=== PATIENT | male | born 1940 ===

== ENCOUNTER 2016-10-12 12:26 | Inpatient (IN) | payer MEDICARE, OTHER ==
[2016-10-12 12:26] VITALS: BMI 38.0
[2016-10-12 13:28] LABS: BASO # 0.1 K/uL (0.0-0.2); BASO % 0.7 % (0.0-2.0); EOS # 0.2 K/uL (0.0-0.7); EOS % 2.3 % (0.0-4.0); HEMATOCRIT 33.7 % (35.0-51.0); LYMPH # 3.5 K/uL (1.0-4.3); LYMPH % 34.3 % (20.0-40.0); MEAN CELL VOLUME 82.8 fl (80.0-94.0); MEAN CORPUSCULAR HEMOGLOBIN 26.7 pg (27.0-31.0); MEAN CORPUSCULAR HGB CONC 32.2 g/dL (33.0-37.0); MEAN PLATELET VOLUME 7.9 fl (7.2-11.7); MONO # 0.7 K/uL (0.0-0.8); NEUT # 5.8 K/uL (1.8-7.0); NEUT % 55.7 % (50.0-75.0); RED CELL DISTRIBUTION WIDTH 15.9 % (11.5-14.5); WHITE BLOOD COUNT 10.3 K/uL (4.8-10.8)
--- NOTE | 2016-10-12 13:39 | RAD ---
HISTORY: cough COMPARISON: 12/21/2013 FINDINGS: LUNGS: Minimal opacity at left lung base, infiltrate versus atelectasis. No other abnormal opacity elsewhere. PLEURA: No significant pleural effusion identified, no pneumothorax apparent. CARDIOVASCULAR: Normal. OSSEOUS STRUCTURES: No significant abnormalities. VISUALIZED UPPER ABDOMEN: Normal. OTHER FINDINGS: None. IMPRESSION: Infiltrate versus atelectasis at left lung base. This finding was discussed with Dr. kerr by telephone at 1:37 p.m. on 10/12/2016.
[2016-10-12 13:47] LABS: PARTIAL THROMBOPLASTIN TIME 24.2 SECONDS (23.3-32.5)
[2016-10-12 13:51] LABS: ALB/GLOB RATIO 0.9 (1.0-2.1); ALKALINE PHOSPHATASE 116 U/L (38-126); ALT/SGPT 26 U/L (21-72); AST/SGOT 25 U/L (17-59); BILIRUBIN,TOTAL 0.2 mg/dl (0.2-1.3); BLOOD UREA NITROGEN 26 mg/dl (9-20); CALCIUM 9.7 mg/dL (8.4-10.2); CARBON DIOXIDE 25 mmol/L (22-30); CHLORIDE 101 mmol/L (98-107); GFR AFRICAN-AMERICAN > 60; GLUCOSE,RANDOM 279 mg/dL (75-110); MAGNESIUM 1.9 MG/DL (1.6-2.3); POTASSIUM 4.4 MMOL/L (3.6-5.0); SODIUM 140 mmol/l (132-148); TOTAL PROTEIN 8.6 G/DL (6.3-8.2)
[2016-10-12] MEDS ORDERED: Piperacillin/Tazobact 3.375 gm Inj IVPB ONE (14:09)
[2016-10-12] MEDS ORDERED: Piperacillin/Tazobact 3.375 GM in Sodium Chloride 0.9% 100 ML IVPB STA (14:12)
--- NOTE | 2016-10-12 14:15 | ED PDOC ---
Hyperglycemia/Hypoglycemia Time Seen by Provider: 10/12/16 12:41 Chief Complaint (Nursing): High Blood Sugar Chief Complaint (Provider): High Blood Sugar History Per: Patient History/Exam Limitations: no limitations Onset/Duration Of Symptoms: Hrs Current Symptoms Are (Timing): Still Present Severity: Mild Associated Infectious Symptoms: Cough. denies: Vomiting, Diarrhea : The patient does not have any of the infectious symptoms listed except for those marked. Additional Complaint(s): Patient is a 76 year old male, who has a history of diabetes, brought in by EMS for high blood sugar since earlier today. Patient reports checking his blood sugar and realized it was elevated so he called the ambulance. Patient has a [facility] home [facility]. Patient fell 4 days ago on the back of his head and has had recurrent headaches since then. Denies loss of consciousness. Patient also complains of cough and congestion for an unspecified amount of time. Denies fever, vomiting, diarrhea, or chest pain. PMD: [place] Past Medical History Reviewed: Historical Data, Nursing Documentation, Vital Signs Vital Signs: Last Vital Signs Temp 98.9 F 10/12/16 12:27 Pulse 110 H 10/12/16 12:27 Resp 16 10/12/16 12:27 BP 177/91 H 10/12/16 12:27 Pulse Ox 99 10/12/16 12:27 - Medical History PMH: Diabetes (presumed ), HTN, Hyperlipidemia - Family History Family History: States: No Known Family Hx - Home Medications Home Medications: Ambulatory Orders Medication Instructions Recorded Aspirin [Adult Low Dose Aspirin EC] 81 mg PO DAILY 04/27/16 Colchicine [Colcrys] 0.6 mg PO DAILY 04/27/16 Folic Acid 1 mg PO DAILY 04/27/16 Pregabalin [Lyrica] 100 mg PO DAILY 04/27/16 Valsartan [Diovan] 80 mg PO DAILY 04/27/16 Atorvastatin [Lipitor] 20 mg PO DAILY 04/29/16 SITagliptin [Januvia] 25 mg PO DAILY 04/29/16 Albuterol/Ipratropium [Duoneb 3 3 ml INH RQ6 neb 05/18/16 mg/0.5 mg (3 ml) UD] Fluticasone/Salmeterol 250/50 1 puff IH Q12 puff 10/25/16 [Advair Diskus 250/50] Tiotropium [Spiriva] 18 mcg INH DAILY cap 05/18/16 Aspirin [Adult Low Dose Aspirin EC] 1 tab PO DAILY 10/12/16 Cilostazol [Pletal] 1 tab PO DAILY 10/12/16 Esomeprazole Magnesium [Nexium] 40 mg PO DAILY 10/12/16 Insulin Aspart [Novolog Flexpen] 3 ml INJ DAILY 10/12/16 Insulin Detemir [Levemir] 3 ml INJ DAILY 10/12/16 Meclizine [Meclizine*] 0.5 tab PO PRN PRN 10/12/16 [id number] Ethyl Esters [OMEGA 3] 2 tab PO DAILY 10/12/16 Tolterodine Tartrate [Tolterodine 1 tab PO DAILY 10/12/16 Tartrate] - Allergies Allergies/Adverse Reactions: Allergies Allergy/AdvReac Type Severity Reaction Status Date / Time No Known Allergies Allergy Verified 10/12/16 13:15 Review of Systems ROS Statement: Except As Marked, All Systems Reviewed And Found Negative Constitutional: Positive for: Other (high blood sugar). Negative for: Fever ENT: Positive for: Nose Congestion Cardiovascular: Negative for: Chest Pain Respiratory: Positive for: Cough Gastrointestinal: Negative for: Vomiting, Diarrhea Neurological: Positive for: Headache Physical Exam - Reviewed Nursing Documentation Reviewed: Yes Vital Signs Reviewed: Yes - Physical Exam Appears: Positive for: Well, Non-toxic, No Acute Distress Head Exam: Positive for: ATRAUMATIC, NORMAL INSPECTION, NORMOCEPHALIC Skin: Positive for: Pallor Eye Exam: Positive for: EOMI, Normal appearance, PERRL Neck: Positive for: Normal, Painless ROM Cardiovascular/Chest: Positive for: Regular Rate, Rhythm. Negative for: Gallop , Murmur Respiratory: Positive for: Normal Breath Sounds. Negative for: Accessory Muscle Use, Rhonchi, Respiratory Distress Extremity: Positive for: Normal ROM Neurologic/Psych: Positive for: Alert, Oriented - Laboratory Results Result Diagrams: 10/12/16 12:55 10/12/16 12:55 - ECG ECG: Positive for: Interpreted By Me, Viewed By Me ECG Rhythm: Positive for: Normal QRS, Normal ST Segment, Sinus Rhythm, Sinus Tachycardia, Right Bundle Branch Block. Negative for: Nonspecific Changes Rate: 65 O2 Sat by Pulse Oximetry: 99 (RA) Pulse Ox Interpretation: Normal - Radiology X-Ray: Viewed By Me, Read By Radiologist X-Ray Interpretation: Infiltrates Medical Decision Making Medical Decision Making: Time: 12:45 Impression: head injury r/o intracranial bleeding Hyperglycemia/ uncontrolled diabetes PNA v CHF Plan: CT Head EKG B-Type Natriuretic Peptide CMP Magnesium Stat Udip Piperacillin IV Blood Culture Scribe Attestation: Documented by Joselin Dyer acting as a scribe for Mary Beth Pfeiffer MD. Scribe Attestation: All medical record entries made by the Scribe were at my direction and personally dictated by me. I have reviewed the chart and agree that the record accurately reflects my personal performance of the history, physical exam, medical decision making, and the department course for this patient. I have also personally directed, reviewed, and agree with the discharge instructions and disposition. - PROCEDURE: CT HEAD WITHOUT CONTRAST. HISTORY: head injury COMPARISON: Noncontrast head CT performed 12/21/13 TECHNIQUE: Axial computed tomography images were obtained through the head/brain without intravenous contrast. Radiation dose: Total exam DLP = 2694.96 mGy-cm. FINDINGS: HEMORRHAGE: No intracranial hemorrhage. BRAIN: No mass effect or edema. Intracranial atherosclerosis. Bilateral basal ganglia calcifications. Right parietal encephalomalacia. Moderate periventricular and subcortical white matter hypodensities, which are nonspecific, but often seen with chronic microvascular ischemic disease. 12 x 4 mm right basal ganglia hypodensity consistent with chronic appearing lacunar infarct. VENTRICLES: No hydrocephalus. CALVARIUM: Unremarkable. PARANASAL SINUSES: Unremarkable as visualized. No significant inflammatory changes. MASTOID AIR CELLS: Opacification of the left mastoid air cells. Recommend clinical correlation for history of mastoiditis. OTHER FINDINGS: None. IMPRESSION: Right parietal encephalomalacia. Moderate nonspecific white matter changes. 12 x 4 mm right basal ganglia lacunar infarct appears chronic. Please note that MRI with diffusion imaging is more sensitive in the detection of acute ischemic event. Opacification of the left mastoid air cells. Recommend clinical correlation for history of mastoiditis. Disposition - Clinical Impression Clinical Impression: Hyperglycemia, Pneumonia, Head injury - Patient ED Disposition Is Patient to be Admitted: Yes Discussed With : Kaden Dior Doctor Will See Patient In The: Hospital Counseled Patient/Family Regarding: Studies Performed, Diagnosis - Disposition Disposition Time: 15:00 Condition: FAIR - Pt Status Changed To: Hospital Disposition Of: Inpatient - Admit Certification Admit to Inpatient:: After my assessment, the patient will require hospitalization for at least two midnights. This is because of the severity of symptoms shown, intensity of services needed, and/or the medical risk in this patient being treated as an outpatient. - POA Present On Arrival: Falls Or Trauma, Poor Glycemic Control Core Measure Indicators: Pneumonia
--- NOTE | 2016-10-12 14:23 | CARD ---
APPROVED REPORT EKG Measurement Heart [id number] <Conclusion> Sinus tachycardia Right bundle branch block Left anterior fascicular block Bifascicular block Possible Lateral infarct, age undetermined Abnormal ECG
--- NOTE | 2016-10-12 14:34 | CT ---
PROCEDURE: CT HEAD WITHOUT CONTRAST. HISTORY: head injury COMPARISON: Noncontrast head CT performed 12/21/13 TECHNIQUE: Axial computed tomography images were obtained through the head/brain without intravenous contrast. Radiation dose: Total exam DLP = 2694.96 mGy-cm. FINDINGS: HEMORRHAGE: No intracranial hemorrhage. BRAIN: No mass effect or edema. Intracranial atherosclerosis. Bilateral basal ganglia calcifications. Right parietal encephalomalacia. Moderate periventricular and subcortical white matter hypodensities, which are nonspecific, but often seen with chronic microvascular ischemic disease. 12 x 4 mm right basal ganglia hypodensity consistent with chronic appearing lacunar infarct. VENTRICLES: No hydrocephalus. CALVARIUM: Unremarkable. PARANASAL SINUSES: Unremarkable as visualized. No significant inflammatory changes. MASTOID AIR CELLS: Opacification of the left mastoid air cells. Recommend clinical correlation for history of mastoiditis. OTHER FINDINGS: None. IMPRESSION: Right parietal encephalomalacia. Moderate nonspecific white matter changes. 12 x 4 mm right basal ganglia lacunar infarct appears chronic. Please note that MRI with diffusion imaging is more sensitive in the detection of acute ischemic event. Opacification of the left mastoid air cells. Recommend clinical correlation for history of mastoiditis.
--- NOTE | 2016-10-12 19:49 | CP.PCM.HP ---
History of Present Illness - History of Present Illness History of Present Illness: CC: High Blood Sugar. 76 y/o M, brought in by ambulance after he noticed to have increased BS previously patient ate a cake in large amount , He thought that was diet cake and it was regular , BS was in the 500s while at home in AM DOA, pt using insulin with no improvement, there after EMS was called and Pt was brought ER [facility] for evaluation and Tx. As per Pt, high BS not associated to any other symptom but cough and congested nose. Worsening symptoms: Headache and neck pain 2nd to fall 4 days [employer] and still with symptoms, pain was described as aching of moderate intensity of 6: 10. Aggravated Factor: Hx of fall 2nd to Losing equilibrium , Patient stated that felt his leg weak and was having mils dizziness, , He felt down sustaining a head contusion ,denied LOC Pt denied: fever, chills, LOC, n/v/d, abdominal pain, CP, SOB, sick contact, recent travel. PMHx: COPD, DM, HTN, HLD, Gout, Hx CVA, Hx of falls, vertigo. EKG showed: Sinus Tachycardia, R bundle branch block, L anterior fascicular block, Bifascicular block, possible lateral infarct, age undetermined. CXR: Infiltrate versus atelectasis at left lung base. CT Head w/o contrast: R parietal encephalomalacia, moderate nonspecific white matter changes, R basal ganglia lacunar infarct appears chronic. Present on Admission - Present on Admission Any Indicators Present on Admission: Yes History of Uncontrolled Diabetes: Yes Review of Systems - Constitutional Constitutional: Headache - EENT Eyes: Other (negative) Ears: Other (negative) Nose/Mouth/Throat: Nasal Congestion - Cardiovascular Cardiovascular: Other (neg) - Respiratory Respiratory: Cough - Gastrointestinal Gastrointestinal: Other (negative) - Genitourinary Genitourinary: Urinary Incontinence - Musculoskeletal Musculoskeletal: Neck Pain (2nd to fall) - Integumentary Integumentary: Other (negative) - Neurological Neurological: Abnormal Speech (mild slurred), Disequilibrium, Focal Weakness ( lower extremities), Headaches (2nd to fall) - Psychiatric Psychiatric: Other - Endocrine Endocrine: Other (negative) - Hematologic/Lymphatic Hematologic: Other (negative) Past Patient History - Infectious Disease Hx of Infectious Diseases: None - Past Medical History & Family History Pertinent Family History: Unknown - Past Social History Smoking Status: Former Smoker Alcohol: None Drugs: Denies Home Situation {Lives}: Alone - CARDIAC Hx Cardiac Disorders: Yes (HTN,HLD) - PULMONARY Hx Respiratory Disorders: No - NEUROLOGICAL Hx Neurological Disorder: Yes (CVA) - HEENT Hx HEENT Problems: No - RENAL Hx Chronic Kidney Disease: No - ENDOCRINE/METABOLIC Hx Endocrine Disorders: Yes (DM1) - HEMATOLOGICAL/ONCOLOGICAL Hx Blood Disorders: No - INTEGUMENTARY Hx Dermatological Problems: No - MUSCULOSKELETAL/RHEUMATOLOGICAL Hx Musculoskeletal Disorders: Yes (GOUT) - GASTROINTESTINAL Hx Gastrointestinal Disorders: Yes Hx Gastroesophageal Reflux: Yes - GENITOURINARY/GYNECOLOGICAL Hx Genitourinary Disorders: Yes (OVERACTIVE BLADDER) - PSYCHIATRIC Hx Psychophysiologic Disorder: No - SURGICAL HISTORY Hx Surgeries: Yes Other/Comment: per son,Patient had Prostate Sx 7 yrs ago,neck sx. - ANESTHESIA Hx Anesthesia: Yes Hx Anesthesia Reactions: No Meds Home Medications: Home Medication List Medication Instructions Recorded Confirmed Type Azithromycin [Zithromax] 500 mg PO DAILY #3 tablet 10/18/16 Rx Promethazine/Codeine 10 ml PO Q6 PRN #10 udc 10/18/16 Rx [Phenergan/Codeine Oral Syrup] Allergies/Adverse Reactions: Allergies Allergy/AdvReac Type Severity Reaction Status Date / Time No Known Allergies Allergy Verified 10/12/16 13:15 Physical Exam - Constitutional Appears: No Acute Distress - Head Exam Additional comments: tenderness occipital - Eye Exam Eye Exam: EOMI, PERRL - ENT Exam ENT Exam: Normal Oropharynx - Neck Exam Neck exam: Positive for: Tenderness (Cervical , healed surgical scar) - Respiratory Exam Respiratory Exam: Decreased Breath Sounds (at bases) - Cardiovascular Exam Cardiovascular Exam: REGULAR RHYTHM - GI/Abdominal Exam GI & Abdominal Exam: Normal Bowel Sounds, Soft Additional comments: scar from previous PEG tube - Extremities Exam Extremities exam: Positive for: normal inspection - Back Exam Back exam: NORMAL INSPECTION - Neurological Exam Neurological exam: Alert, Oriented x3 Additional comments: Minimal R facial droop, mild slurred speech, gait no tested, moves well extremities against gravity, RUE mild weakness - Psychiatric Exam Psychiatric exam: Normal Mood - Skin Skin Exam: Normal Color, Warm Results - Vital Signs Recent Vital Signs: Last Vital Signs Temp 98.2 F 10/12/16 19:45 Pulse 93 H 10/12/16 19:45 Resp 18 10/12/16 19:45 BP 165/81 H 10/12/16 19:45 Pulse Ox 98 10/12/16 19:45 reviewed J.PMary - Labs Result Diagrams: 10/18/16 05:50 10/18/16 05:50 Labs: reviewed J.PMary - EKG Data EKG comments: reviewed J.P. - Imaging and Cardiology Chest x-ray Status: Report reviewed by me (Nick) CT scan - head Status: Report reviewed by me (Nick) Assessment & Plan (1) Hyperglycemia Status: Resolved Priority: High (2) HTN (hypertension) Status: Chronic Priority: High (3) DMII (diabetes mellitus, type 2) Status: Chronic Priority: High (4) Pneumonia Status: Deleted Priority: High (5) COPD exacerbation Status: Acute (6) HLD (hyperlipidemia) Status: Chronic Priority: Medium (7) Head injury Status: Acute (8) Cervical sprain Status: Acute (9) History of CVA (cerebrovascular accident) Status: Chronic - Assessment and Plan (Free Text) Plan: Zithromax, Zosyn, Duoneb, Pulmicort, f/u Blood C-S, Sputum C-S, Carotid & vertebral U-S, MRI Brain w/o cont, ECHO , CT Neck and Chest w/o contrast.. - Date & Time Date: 10/12/16 Time: 16:50
[2016-10-12] MEDS ORDERED: Sodium Chloride 3% for Inhalation 4 ML VIAL.NEB IH PRN (20:45)
[2016-10-12] MEDS ORDERED: Budesonide 0.5 mg/2 ml Inhal Susp UD IH SCH (21:00)
[2016-10-12] MEDS: Insulin Detemir 100 Units/ml Inj SC SCH (22:21)
[2016-10-12] MEDS: Insulin Regular 100 units/ml SC SCH (22:23)
[2016-10-12] MEDS: Piperacillin/Tazobact 3.375 GM in Sodium Chloride 0.9% 100 ML IVPB SCH (22:24)
[2016-10-13] MEDS: Albuterol-Ipratrop 3 mg / 0.5 (3 ml) UD INH SCH (01:05)
[2016-10-13] MEDS: Piperacillin/Tazobact 3.375 GM in Sodium Chloride 0.9% 100 ML IVPB SCH ×4 (05:11→21:01)
[2016-10-13] MEDS: Insulin Regular 100 units/ml SC SCH ×4 (06:51→22:49)
[2016-10-13 07:11] LABS: HEMATOCRIT 33.2 % (35.0-51.0); MEAN CELL VOLUME 81.4 fl (80.0-94.0); MEAN CORPUSCULAR HEMOGLOBIN 26.8 pg (27.0-31.0); WHITE BLOOD COUNT 9.5 K/uL (4.8-10.8)
[2016-10-13 07:23] LABS: ALB/GLOB RATIO 0.9 (1.0-2.1); ALKALINE PHOSPHATASE 83 U/L (38-126); ALT/SGPT 21 U/L (21-72); AST/SGOT 25 U/L (17-59); BILIRUBIN,TOTAL 0.3 mg/dl (0.2-1.3); BLOOD UREA NITROGEN 19 mg/dl (9-20); CALCIUM 9.6 mg/dL (8.4-10.2); CARBON DIOXIDE 27 mmol/L (22-30); CHLORIDE 104 mmol/L (98-107); CHOLESTEROL 127 mg/dL (0-199); GFR AFRICAN-AMERICAN > 60; GLUCOSE,RANDOM 183 mg/dL (75-110); POTASSIUM 4.5 MMOL/L (3.6-5.0); SODIUM 139 mmol/l (132-148); TOTAL PROTEIN 8.2 G/DL (6.3-8.2)
[2016-10-13 07:31] LABS: T4 6.23 ug/dl (5.5-11.0)
[2016-10-13 07:45] LABS: THYROID STIMULATING HORMONE 2.18 mIU/ML (0.46-4.68)
[2016-10-13] MEDS: Omega-3-Acid Ethyl Esters 1 GM Cap PO SCH (09:56)
[2016-10-13] MEDS: Pantoprazole 40 mg EC Tab PO SCH (09:56)
[2016-10-13] MEDS: Enoxaparin 40 mg Syringe SC SCH (10:00)
[2016-10-13 10:36] LABS: RBC URINE < 1 /hpf (0-3); URINE BILIRUBIN NEGATIVE (NEGATIVE); URINE BLOOD NEGATIVE (NEGATIVE); URINE COLOR STRAW (YELLOW); URINE GLUCOSE (UA) NEG (Normal); URINE KETONE NEGATIVE (NEGATIVE); URINE LEUKOCYTE ESTERASE NEG Leu/uL (Negative); URINE PROTEIN NEGATIVE (NEGATIVE); URINE UROBILINOGEN 0.2-1.0 mg/dL (0.2-1.0); WBC URINE < 1 /hpf (0-5)
--- NOTE | 2016-10-13 10:45 | CT ---
PROCEDURE: CT Chest without contrast HISTORY: PNEUMONIA COMPARISON: None. TECHNIQUE: Contiguous axial images were obtained through the chest without intravenous contrast enhancement. Sagittal and coronal reconstructions were performed. Radiation dose (DLP): 539.51 mGy-cm. FINDINGS: LUNGS: No pulmonary infiltrate. Extensive subpleural emphysema. Possible subpleural fibrosis versus dependent atelectasis at lung bases. No pulmonary infiltrate. There is a spiculated, irregularly-shaped mass in the left lung apex, measuring approximately 2.4 by 3.1 by 3.9 cm. , the mass extends to the pleural surface. No other pulmonary mass identified. This mass is concerning for a malignant neoplasm and further evaluation is advised. MEDIASTINUM: Unremarkable thoracic aorta. No aneurysm. Normal size heart. Coronary arterial calcification. Main pulmonary artery unremarkable. No vascular congestion. No lymphadenopathy. PLEURA: No pleural fluid. No pneumothorax. BONES: No fracture. Posterior surgical fixation from C4 through T2 noted. UPPER ABDOMEN: Incidental 2 mm nonobstructing right upper pole renal calculus. OTHER FINDINGS: None. IMPRESSION: Spiculated 3.9 cm irregularly-shaped mass in the left apex suspicious for malignant neoplasm. No lymphadenopathy. No chest wall invasion. No pulmonary infiltrate. Extensive subpleural emphysema. Subpleural fibrosis versus dependent atelectasis at lung bases.
--- NOTE | 2016-10-13 10:52 | CARD ---
APPROVED REPORT EXAM: Two-dimensional and M-mode echocardiogram with Doppler and color Doppler. Other Information Quality : GoodRhythm : NSR INDICATION CVA/TIA 2D DIMENSIONS IVSd1.11 (0.7-1.1cm)LVDd3.46 (3.9-5.9cm) LVOT Diameter2.13 (1.8-2.4cm)PWd1.04 (0.7-1.1cm) IVSs1.76 (0.8-1.2cm)LVDs2.25 (2.5-4.0cm) FS (%) 34.9 %PWs1.53 (0.8-1.2cm) M-Mode DIMENSIONS Left Atrium (MM)3.62 (2.5-4.0cm)IVSd0.91 (0.7-1.1cm) Aortic Root3.65 (2.2-3.7cm)LVDd4.62 (4.0-5.6cm) Aortic Cusp Exc.2.15 (1.5-2.0cm)PWd1.15 (0.7-1.1cm) IVSs1.21 cmFS (%) 40 % LVDs2.76 (2.0-3.8cm)PWs1.29 cm Mitral Valve E/A ratio0.0 TDI E/Lateral E'0.0E/Medial E'0.0 Pulmonary Valve PV Peak Rbnmppsi15.2cm/s Tricuspid Valve TR Peak [id number] [id number] Peak Gr.20mmHg [id number] LEFT VENTRICLE The left ventricle is normal size. There is normal left ventricular wall thickness. Left ventricle systolic function is normal. The Ejection Fraction is 60-65%. The apical half of the lateral wall was moderately hypokinetic Other LV wall segments contracted normally. Transmitral Doppler flow pattern is Grade I-abnormal relaxation pattern. RIGHT VENTRICLE The right ventricle is normal size. There is normal right ventricular wall thickness. The right ventricular systolic function is normal. ATRIA The left atrium size is normal. The right atrium size is normal. AORTIC VALVE The aortic valve is normal in structure and function. No aortic regurgitation is present. There is no aortic valvular stenosis. MITRAL VALVE The mitral valve is normal in structure. There is no evidence of mitral valve prolapse. There is no mitral valve stenosis. Mitral regurgitation is trace. TRICUSPID VALVE The tricuspid valve is normal in structure. There is trace tricuspid regurgitation. Right ventricular systolic pressure is estimated at 32 mmHg. There is mild pulmonary hypertension. PULMONIC VALVE The pulmonary valve is normal in structure and function. There is no pulmonic valvular regurgitation. GREAT VESSELS The aortic root is normal in size. Due to poor image quality, the IVC could not be assessed. PERICARDIAL EFFUSION The pericardium appears normal. <Conclusion> The left ventricle is normal size. There is normal left ventricular wall thickness. The apical half of the lateral wall was moderately hypokinetic Other LV wall segments contracted normally. Left ventricle systolic function is normal. The Ejection Fraction is 60-65%. Transmitral Doppler flow pattern is Grade I-abnormal relaxation pattern.
--- NOTE | 2016-10-13 11:06 | CT ---
PROCEDURE: CT NECK WITHOUT CONTRAST HISTORY: Pneumonia COMPARISON: None. TECHNIQUE: CT of the neck without intravenous contrast. Coronal and sagittal reformats generated. Radiation dose: DLP 485.46 mGy-cm FINDINGS: Please note that examination is technically limited. Due to the patient's inability to prior early cooperate for positioning, examination fails to include the maxilla, the anterior tongue and mandible. In addition, there is beam hardening artifact arising from extensive metallic fixation hardware in the cervical spine, limiting this examination. NASOPHARYNX: Unremarkable. SUPRAHYOID NECK: Unremarkable oropharynx, oral cavity, parapharyngeal space and retropharyngeal space. INFRAHYOID NECK: Unremarkable larynx, hypopharynx, and supraglottic space. Vocal cords intact. MASS: None. GLANDS: Parotid and submandibular glands unremarkable. Normal size thyroid gland, without nodule. LYMPH NODES: Normal. No lymphadenopathy. CERVICAL SPINE: Status post posterior fixation C4 through T2. 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 No osseous fracture identified. OTHER FINDINGS: 3.1 cm left apical spiculated pleural-based lung mass. Please see report of CT chest from same date. IMPRESSION: No acute abnormality of the neck. Posterior fixation C4 through T2 with metallic orthopedic hardware. 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 Limited examination as noted above. 3.1 cm spiculated pleural-based left apical mass. Please see report of CT chest of same date.
[2016-10-13] MEDS: Azithromycin 500 MG in Sodium Chloride 0.9% 250 ML IVPB SCH (11:30)
[2016-10-13] MEDS: Cilostazol 100 mg Tab UD PO SCH (12:48)
--- NOTE | 2016-10-13 15:19 | CP.PCM.PN ---
Subjective - Date & Time of Evaluation Date of Evaluation: 10/13/16 Time of Evaluation: 11:30 - Subjective Subjective: F/U Hyperglycemia/ Mass ESTEVAN No SOB , occasional dry cough, cervical pain Objective - Vital Signs/Intake and Output Vital Signs (last 24 hours): Temp Pulse Resp BP Pulse Ox 97.6 F 92 H 20 136/76 98 10/13/16 13:28 10/13/16 13:28 10/13/16 13:28 10/13/16 13:28 10/13/16 13:28 - Medications Medications: Current Medications Albuterol/Ipratropium (Duoneb 3 Mg/0.5 Mg (3 Ml) Ud) 3 ml INH RQ6 [facility] Last Admin: 10/13/16 01:05 Dose: 3 ml Aspirin (Ecotrin) 81 mg PO DAILY [facility] Last Admin: 10/13/16 09:55 Dose: 81 mg Atorvastatin Calcium (Lipitor) 20 mg PO DAILY [facility] Last Admin: 10/13/16 09:56 Dose: 20 mg Budesonide (Pulmicort Respules) 0.5 mg IH Q12 [facility] Cilostazol (Pletal) 100 mg PO DAILY [facility] Last Admin: 10/13/16 12:48 Dose: 100 mg Colchicine (Colocrys) 0.6 mg PO DAILY [facility] Last Admin: 10/13/16 09:55 Dose: 0.6 mg Enoxaparin Sodium (Lovenox) 40 mg SC DAILY [facility] PRN Reason: Protocol Last Admin: 10/13/16 10:00 Dose: 40 mg Folic Acid (Folic Acid) 1 mg PO DAILY [facility] Last Admin: 10/13/16 09:55 Dose: 1 mg Azithromycin 500 mg/ Sodium (Chloride) 250 mls @ 250 mls/hr IVPB DAILY [facility] Last Admin: 10/13/16 11:30 Dose: 250 mls/hr Piperacillin Sod/Tazobactam (Sod 3.375 gm/ Sodium Chloride) 100 mls @ 100 mls/ hr IVPB Q6 [facility] Last Admin: 10/13/16 10:08 Dose: 100 mls/hr Insulin Detemir (Levemir) 10 units SC HS [facility] Last Admin: 10/12/16 22:21 Dose: 10 units Insulin Human Regular (Humulin R) 0 units SC ACCU-CHECK [facility] PRN Reason: Protocol Last Admin: 10/13/16 12:27 Dose: 3 units Meclizine HCl (Antivert) 12.5 mg PO DAILY [facility] PRN Reason: Dizziness Olnfj-2-Jloq Ethyl Esters (Lovaza) 2 gm PO DAILY [facility] Last Admin: 10/13/16 09:56 Dose: 2 gm Pantoprazole Sodium (Protonix Ec Tab) 40 mg PO DAILY [facility] Last Admin: 10/13/16 09:56 Dose: 40 mg Pregabalin (Lyrica) 100 mg PO DAILY [facility] Last Admin: 10/13/16 10:09 Dose: 100 mg Sitagliptin Phosphate (Januvia) 25 mg PO DAILY [facility] Last Admin: 10/13/16 09:56 Dose: 25 mg Valsartan (Diovan) 80 mg PO DAILY [facility] Last Admin: 10/13/16 09:55 Dose: 80 mg - Labs Labs: 10/13/16 06:30 10/13/16 06:30 PT 10.2 SECONDS (9.6-11.2) 10/12/16 12:55 INR 0.98 (0.92-1.08) 10/12/16 12:55 APTT 24.2 SECONDS (23.3-32.5) 10/12/16 12:55 - Constitutional Appears: No Acute Distress - Head Exam Additional comments: mild tenderness occipital - Eye Exam Eye Exam: EOMI, PERRL - ENT Exam ENT Exam: Normal Oropharynx - Neck Exam Neck Exam: Tenderness - Respiratory Exam Respiratory Exam: Decreased Breath Sounds (at bases) - Cardiovascular Exam Cardiovascular Exam: REGULAR RHYTHM - GI/Abdominal Exam GI & Abdominal Exam: Soft, Normal Bowel Sounds - Extremities Exam Extremities Exam: Normal Inspection - Back Exam Back Exam: NORMAL INSPECTION - Neurological Exam Neurological Exam: Alert, Oriented x3 Additional comments: Minimal R facial droop, mild slurred speech, gait no tested, moves well extremities against gravity , RUE mild weakness - Psychiatric Exam Psychiatric exam: Normal Mood - Skin Skin Exam: Normal Color, Warm Assessment and Plan (1) Hyperglycemia Status: Resolved (2) HTN (hypertension) Status: Chronic (3) COPD exacerbation Status: Acute (4) Mass of upper lobe of left lung Status: Acute (5) DMII (diabetes mellitus, type 2) Status: Chronic (6) HLD (hyperlipidemia) Status: Chronic (7) Head injury Status: Acute (8) Acute cervical sprain Status: Acute - Assessment and Plan (Free Text) Plan: CT Chest ESTEVAN mass increased in size from previous CT, no PNA , CT Neck posterior fixation C4 T2 , continue current Atb , DuoNeb , Pulmicort, f/u sputum C'S, Cytology, may need Bronchoscopy Bx procedure, f/u Neurology , Hematology consult
--- NOTE | 2016-10-13 19:07 | CON ---
DATE: 10/13/2016 REASON FOR THE CONSULTATION: Syncopal attack. CHIEF COMPLAINT: The patient was brought in by family members yesterday with a history of blood sugar was found of over 600. Because of the sugar was high, his son decided to bring him to the hospital for further evaluation. He also gave a history of fell backwards and hit his head. HISTORY OF PRESENT ILLNESS: The patient is a 76-year-old right-handed male with history of a fall at home, and hit his neck and the back of his head. No witnessed tonic-clonic activities. No history of loss of consciousness at the time of the fall. He also presenting with dyscomfortness condition in his chest. PAST MEDICAL HISTORY: Coronary artery bypass surgery, hypertension, dyslipidemia, post-surgery history for his heart , cervical laminectomy in the past. PERSONAL HISTORY: Denies smoking or alcohol use. ALLERGIES: No known allergies. REVIEW OF SYSTEMS: As per H and P. MEDICATIONS: Antivert, azithromycin, colchicine, valsartan, aspirin, folic acid , Humalog, Januvia, Levemir, Lipitor, Lovaza, Lyrica, piperacillin, pantoprazole. VITAL SIGNS: Blood pressure 112/65, mean arterial pressure of 65, respiratory rate 18, temperature 97.2, Pulse 89. NECK: Supple. HEART: Ejection systolic murmur heard. EXTREMITIES: No edema in legs. NEUROLOGIC EXAMINATION: MENTAL STATE EXAMINATION: He is awake, alert, oriented to person, place. He knows the year. He does not know the president. He follows 1 to 2-step command. Communication only made by Russian. His speech is dysarthric, but his son states that is the way he speaks. CRANIAL NERVE EXAMINATION: Visual field intact. Pupil reactive to light, extraocular movements normal, no nystagmus. No facial sensory deficit, no facial asymmetry. Hearing is normal. Tongue is mobile and midline. Good gag. MOTOR EXAMINATION: Outstretched hands with eyes closed, there is a mild drift noted on the right side. Both legs he was able to lift against gravity. DEEP TENDON REFLEXES: Biceps, brachioradialis, triceps, knee, and ankle all are absent. Plantars are equivocal response on both sides. COORDINATION: [id number]: Dysmetria on both sides, right more than his left side. GAIT: Deferred at this time. CONCLUSION: Upon reviewing his history and neurological examination, the patient's has been presenting with history of fall with no loss of consciousness. Presenting with a mild asymmetric examination suggestive of a mild right hemiparesis. This is probably old versus new. His fall could be related to cardiac versus neuro. From neuro it could be related to his existing neuropathy or possible nonconvulsive seizures. The patient's examination also suggestive of significant bilateral dissymmetric sensory motor neuropathy. CT of the head reviewed by me showed global atrophy with left basal ganglia calcification, probably old stroke, and right cystic changes over right externalized capsule consistent with old stroke. Cervical spine showed hard riding from C2, C3, T1, suggestive of previous surgery in the past. Chest CT showed a possible left apical mass. BLOOD WORKUP: WBC 9.5, hemoglobin 11.2, hematocrit 33.2, platelet 190. Sodium 139, potassium 4.5, chloride 104, bicarbonate 27, BUN 19, creatinine 1.1. B12 of 345. TSH 2.18. RECOMMENDATIONS: I agree with aspirin for now, keep the mean arterial blood pressure around 100, proper hydration. Antibiotic as per the recommendation. There was a carotid Doppler, and I also recommended him to have MRA of the brain as well as an electroencephalogram. MRA of the brain to be done to rule out any mass lesion versus a stroke process. The patient's condition has been discussed with his son, as well as his daughter -in-law. The patient will be followed closely with you. Ezra Alexander MD cc: [id number] TT: 10/13/2016 19:06:58 Confirmation # [id number] Dictation # [id number] jn NATHANAEL
[2016-10-13] MEDS: Insulin Detemir 100 Units/ml Inj SC SCH (22:54)
[2016-10-14] MEDS: Albuterol-Ipratrop 3 mg / 0.5 (3 ml) UD INH SCH ×5 (01:01→19:28)
[2016-10-14] MEDS: Piperacillin/Tazobact 3.375 GM in Sodium Chloride 0.9% 100 ML IVPB SCH ×4 (04:42→22:51)
[2016-10-14 06:13] LABS: MICROALBUMIN 7.9 mg/dL (())
[2016-10-14] MEDS: Insulin Regular 100 units/ml SC SCH ×4 (06:58→22:53)
[2016-10-14] MEDS: Omega-3-Acid Ethyl Esters 1 GM Cap PO SCH (08:57)
[2016-10-14] MEDS: Enoxaparin 40 mg Syringe SC SCH (08:57)
[2016-10-14] MEDS: Pantoprazole 40 mg EC Tab PO SCH (08:59)
[2016-10-14] MEDS: Cilostazol 100 mg Tab UD PO SCH (08:59)
[2016-10-14] MEDS: Azithromycin 500 MG in Sodium Chloride 0.9% 250 ML IVPB SCH (08:59)
--- NOTE | 2016-10-14 09:38 | CP.PCM.CON ---
History of Present Illness - History of Present Illness History of Present Illness: This is a 76 yrs old male who was admitted because of hyperglycemia. Pt ate a cake the day he came in thinking it was a diet cake. However it was a regular one and pt's blood glucose was more than 500. He felt dizzy and was brought to the ER. $days ago he had felt a little dizzy, and fell sustaining a concussion. The CT of the head did not show any intracranial bleeding. But there is evidence of a old lacunar infarct. He has a h/o a CVA sustained about 6 months ago and he was admitted to the acute rehab. At that time there was a small nodule at the left upper lobe of the lung. This has increased by 1.5 cms now, but pt does not want a biopsy at this time. He will discuss it with his son. He was not a smoker, has not lost any weight, and appetite is good. Ocasional cough, no hemoptysis. He has a metal colt in the C1 to T1 area for fixation of the vertebrae,( probably due to cervical spondylitis). Past Patient History - Infectious Disease Hx of Infectious Diseases: None - Past Medical History & Family History Past Medical History?: Yes - Past Social History Smoking Status: Former Smoker Alcohol: None Drugs: Denies Home Situation {Lives}: Alone - CARDIAC Hx Cardiac Disorders: Yes (HTN,HLD) - PULMONARY Hx Respiratory Disorders: No - NEUROLOGICAL Hx Neurological Disorder: Yes (CVA) - HEENT Hx HEENT Problems: No - RENAL Hx Chronic Kidney Disease: No - ENDOCRINE/METABOLIC Hx Endocrine Disorders: Yes (DM1) - HEMATOLOGICAL/ONCOLOGICAL Hx Blood Disorders: No - INTEGUMENTARY Hx Dermatological Problems: No - MUSCULOSKELETAL/RHEUMATOLOGICAL Hx Musculoskeletal Disorders: Yes (GOUT) - GASTROINTESTINAL Hx Gastrointestinal Disorders: Yes Hx Gastroesophageal Reflux: Yes - GENITOURINARY/GYNECOLOGICAL Hx Genitourinary Disorders: Yes (OVERACTIVE BLADDER) - PSYCHIATRIC Hx Psychophysiologic Disorder: No - SURGICAL HISTORY Hx Surgeries: Yes Other/Comment: per son,Patient had Prostate Sx 7 yrs ago,neck sx. - ANESTHESIA Hx Anesthesia: Yes Hx Anesthesia Reactions: No Meds Allergies/Adverse Reactions: Allergies Allergy/AdvReac Type Severity Reaction Status Date / Time No Known Allergies Allergy Verified 10/12/16 13:15 - Medications Medications: Current Medications Albuterol/Ipratropium (Duoneb 3 Mg/0.5 Mg (3 Ml) Ud) 3 ml INH RQ6 [facility] Last Admin: 10/14/16 07:55 Dose: 3 ml Aspirin (Ecotrin) 81 mg PO DAILY [facility] Last Admin: 10/14/16 08:56 Dose: 81 mg Atorvastatin Calcium (Lipitor) 20 mg PO DAILY [facility] Last Admin: 10/14/16 08:57 Dose: 20 mg Budesonide (Pulmicort Respules) 0.5 mg IH Q12 [facility] Last Admin: 10/14/16 07:59 Dose: 0.5 mg Cilostazol (Pletal) 100 mg PO DAILY [facility] Last Admin: 10/14/16 08:59 Dose: 100 mg Colchicine (Colocrys) 0.6 mg PO DAILY [facility] Last Admin: 10/14/16 08:56 Dose: 0.6 mg Enoxaparin Sodium (Lovenox) 40 mg SC DAILY [facility] PRN Reason: Protocol Last Admin: 10/14/16 08:57 Dose: 40 mg Folic Acid (Folic Acid) 1 mg PO DAILY [facility] Last Admin: 10/14/16 08:56 Dose: 1 mg Azithromycin 500 mg/ Sodium (Chloride) 250 mls @ 250 mls/hr IVPB DAILY [facility] Last Admin: 10/14/16 08:59 Dose: 250 mls/hr Piperacillin Sod/Tazobactam (Sod 3.375 gm/ Sodium Chloride) 100 mls @ 100 mls/ hr IVPB Q6 [facility] Last Admin: 10/14/16 09:00 Dose: 100 mls/hr Insulin Detemir (Levemir) 10 units SC HS [facility] Last Admin: 10/13/16 22:54 Dose: 10 units Insulin Human Regular (Humulin R) 0 units SC ACCU-CHECK [facility] PRN Reason: Protocol Last Admin: 10/14/16 06:58 Dose: 2 units Kholx-7-Abxv Ethyl Esters (Lovaza) 2 gm PO DAILY [facility] Last Admin: 10/14/16 08:57 Dose: 2 gm Pantoprazole Sodium (Protonix Ec Tab) 40 mg PO DAILY [facility] Last Admin: 10/14/16 08:59 Dose: 40 mg Pregabalin (Lyrica) 100 mg PO DAILY [facility] Last Admin: 10/14/16 08:59 Dose: 100 mg Sitagliptin Phosphate (Januvia) 25 mg PO DAILY [facility] Last Admin: 10/14/16 08:57 Dose: 25 mg Valsartan (Diovan) 80 mg PO DAILY [facility] Last Admin: 10/14/16 08:56 Dose: 80 mg Physical Exam - Additional Findings Additional findings: Physical Exam; Pt is awake, but a little confuse Neck : stiff because of the cervical colt placement, no adenopathy. Chest; Lungs clear, no rales or rhonchi Heart; RSR, no murmur Abd; Soft, no mass, no h/s megal Results - Vital Signs Recent Vital Signs: Last Vital Signs Temp 97.4 F L 10/14/16 08:27 Pulse 80 10/14/16 08:51 Resp 20 10/14/16 08:27 BP 162/82 H 10/14/16 08:27 Pulse Ox 100 10/14/16 08:27 - Labs Result Diagrams: 10/13/16 06:30 10/13/16 06:30 Labs: Laboratory Results - last 24 hr 10/13/16 10/13/16 10/13/16 06:30 10:26 11:23 POC Glucose (mg/dL) 207 H Hemoglobin A1c 8.9 H 25-OH Vitamin D Total 24.5 L Urine Color Straw Urine Clarity Clear Urine pH 5.0 Ur Specific [place] 1.009 Urine Protein Negative Urine Glucose (UA) Neg Urine Ketones Negative Urine Blood Negative Urine Nitrate Negative Urine Bilirubin Negative Urine Urobilinogen 0.2-1.0 Ur Leukocyte Esterase Neg Urine RBC (Auto) < 1 Urine Microscopic WBC < 1 Ur Squamous Epith Cells < 1 Urine Creatinine 48 Urine Microalbumin 7.9 Microalb/Creat Ratio 165 H Cold Agglutinins 10/13/16 10/13/16 10/13/16 13:52 16:20 21:26 POC Glucose (mg/dL) 185 H 135 H Hemoglobin A1c 25-OH Vitamin D Total Urine Color Urine Clarity Urine pH Ur Specific [place] Urine Protein Urine Glucose (UA) Urine Ketones Urine Blood Urine Nitrate Urine Bilirubin Urine Urobilinogen Ur Leukocyte Esterase Urine RBC (Auto) Urine Microscopic WBC Ur Squamous Epith Cells Urine Creatinine Urine Microalbumin Microalb/Creat Ratio Cold Agglutinins Negative 10/14/16 05:29 POC Glucose (mg/dL) 185 H Hemoglobin A1c 25-OH Vitamin D Total Urine Color Urine Clarity Urine pH Ur Specific [place] Urine Protein Urine Glucose (UA) Urine Ketones Urine Blood Urine Nitrate Urine Bilirubin Urine Urobilinogen Ur Leukocyte Esterase Urine RBC (Auto) Urine Microscopic WBC Ur Squamous Epith Cells Urine Creatinine Urine Microalbumin Microalb/Creat Ratio Cold Agglutinins Assessment & Plan - Assessment and Plan (Free Text) Assessment: Imp; Hyperglycemis Head injury' , Old CVA Mass left upper lung lobe Plan: Plan; I feel pt needs a lung biopsy to see if there is a malignant process, if neurologist clears him for the biopsy and possible surgery - Date & Time Date: 10/14/16 Time: 10:10
--- NOTE | 2016-10-14 13:30 | US ---
PROCEDURE: Duplex ultrasound of the carotid and vertebral arteries. HISTORY: Fall, head injury COMPARISON: None available. TECHNIQUE: Grayscale and duplex Doppler evaluation of the cervical carotid and vertebral arteries were performed. The common carotid, carotid bifurcations and cervical ICA and proximal ECA were evaluated. The vertebral arteries were evaluated for gross patency and direction. FINDINGS: There are MODERATE calcified and noncalcified atherosclerotic plaques in both carotid bulbs, proximal internal and external carotid arteries. RIGHT CAROTID ARTERIES: Common Carotid Artery: Maximal flow velocity of 44.9 cm/s. Carotid Bifurcation: Normal. Internal Carotid Artery:Maximal flow velocity of 59.2 cm/s. External Carotid Artery (proximal branches): Maximal flow velocity of 64.7 cm/s. ICA/CCA Ratio: 1.3 LEFT CAROTID ARTERIES: Common Carotid Artery: Maximal flow velocity of 68.5 cm/s. Carotid Bifurcation: Normal. Internal Carotid Artery: Maximal flow velocity of 102.3 cm/s. External Carotid Artery (proximal branches): Maximal flow velocity of 93.0 cm/s. ICA/CCA Ratio: 1.5 VERTEBRAL ARTERIES: Right Vertebral Artery: Patent. Antegrade flow. Left Vertebral Artery: Patent. Antegrade flow. OTHER FINDINGS: None. IMPRESSION: Moderate calcified atherosclerotic plaques in the carotid bulbs, proximal internal carotid and external carotid arteries. No hemodynamically significant stenosis by peak systolic velocity criteria.
--- NOTE | 2016-10-14 13:48 | CP.PCM.PN ---
Subjective - Date & Time of Evaluation Date of Evaluation: 10/14/16 Time of Evaluation: 10:40 - Subjective Subjective: F/U Hyperglycemia/ Mass ESTEVAN. Occasional dry cough, no SOB, mild cervical pain. Objective - Vital Signs/Intake and Output Vital Signs (last 24 hours): Temp Pulse Resp BP Pulse Ox 97.0 F L 101 H 18 107/63 100 10/14/16 12:36 10/14/16 12:36 10/14/16 12:36 10/14/16 12:36 10/14/16 12:36 Intake and Output: 10/14/16 10/14/16 06:59 18:59 Intake Total 350 Output Total 200 Balance 150 - Medications Medications: Current Medications Albuterol/Ipratropium (Duoneb 3 Mg/0.5 Mg (3 Ml) Ud) 3 ml INH RQ6 [facility] Last Admin: 10/14/16 13:24 Dose: 3 ml Aspirin (Ecotrin) 81 mg PO DAILY [facility] Last Admin: 10/14/16 08:56 Dose: 81 mg Atorvastatin Calcium (Lipitor) 20 mg PO DAILY [facility] Last Admin: 10/14/16 08:57 Dose: 20 mg Budesonide (Pulmicort Respules) 0.5 mg IH Q12 [facility] Last Admin: 10/14/16 07:59 Dose: 0.5 mg Cilostazol (Pletal) 100 mg PO DAILY [facility] Last Admin: 10/14/16 08:59 Dose: 100 mg Colchicine (Colocrys) 0.6 mg PO DAILY [facility] Last Admin: 10/14/16 08:56 Dose: 0.6 mg Enoxaparin Sodium (Lovenox) 40 mg SC DAILY [facility] PRN Reason: Protocol Last Admin: 10/14/16 08:57 Dose: 40 mg Folic Acid (Folic Acid) 1 mg PO DAILY [facility] Last Admin: 10/14/16 08:56 Dose: 1 mg Azithromycin 500 mg/ Sodium (Chloride) 250 mls @ 250 mls/hr IVPB DAILY [facility] Last Admin: 10/14/16 08:59 Dose: 250 mls/hr Piperacillin Sod/Tazobactam (Sod 3.375 gm/ Sodium Chloride) 100 mls @ 100 mls/ hr IVPB Q6 [facility] Last Admin: 10/14/16 09:00 Dose: 100 mls/hr Insulin Detemir (Levemir) 10 units SC HS [facility] Last Admin: 10/13/16 22:54 Dose: 10 units Insulin Human Regular (Humulin R) 0 units SC ACCU-CHECK [facility] PRN Reason: Protocol Last Admin: 10/14/16 11:33 Dose: 4 units Gikgz-0-Fqtu Ethyl Esters (Lovaza) 2 gm PO DAILY [facility] Last Admin: 10/14/16 08:57 Dose: 2 gm Pantoprazole Sodium (Protonix Ec Tab) 40 mg PO DAILY [facility] Last Admin: 10/14/16 08:59 Dose: 40 mg Pregabalin (Lyrica) 100 mg PO DAILY [facility] Last Admin: 10/14/16 08:59 Dose: 100 mg Sitagliptin Phosphate (Januvia) 25 mg PO DAILY [facility] Last Admin: 10/14/16 08:57 Dose: 25 mg Valsartan (Diovan) 80 mg PO DAILY [facility] Last Admin: 10/14/16 08:56 Dose: 80 mg - Labs Labs: 10/13/16 06:30 10/13/16 06:30 PT 10.2 SECONDS (9.6-11.2) 10/12/16 12:55 INR 0.98 (0.92-1.08) 10/12/16 12:55 APTT 24.2 SECONDS (23.3-32.5) 10/12/16 12:55 - Constitutional Appears: No Acute Distress - Head Exam Additional comments: Mild tenderness occipital - Eye Exam Eye Exam: EOMI, PERRL - ENT Exam ENT Exam: Normal Oropharynx - Neck Exam Neck Exam: Tenderness - Respiratory Exam Respiratory Exam: Decreased Breath Sounds (at bases), Rhonchi (Few expiratory at bases) - Cardiovascular Exam Cardiovascular Exam: REGULAR RHYTHM - GI/Abdominal Exam GI & Abdominal Exam: Soft, Normal Bowel Sounds - Extremities Exam Extremities Exam: Normal Inspection - Back Exam Back Exam: NORMAL INSPECTION - Neurological Exam Neurological Exam: Alert, Oriented x3 Additional comments: Minimal R facial droop, mild slurry speech, gait no tested, moves well extremities against gravity, RUE mild weakness. - Psychiatric Exam Psychiatric exam: Normal Mood - Skin Skin Exam: Normal Color, Warm Assessment and Plan (1) Mass of upper lobe of left lung Status: Acute (2) COPD exacerbation Status: Acute (3) Hyperglycemia Status: Resolved (4) HTN (hypertension) Status: Chronic (5) DMII (diabetes mellitus, type 2) Status: Chronic (6) HLD (hyperlipidemia) Status: Chronic (7) Head injury Status: Acute (8) Acute cervical sprain Status: Acute - Assessment and Plan (Free Text) Plan: Increased respiratory Tx, FOB Bx, Neuro and Hematology consult appreciated. Cardiology consult.
[2016-10-14] MEDS: Budesonide 0.5 mg/2 ml Inhal Susp UD IH SCH (15:59)
[2016-10-14] MEDS ORDERED: Acetylcysteine 10% 30 ML IH SCH (20:00)
[2016-10-14] MEDS: Insulin Detemir 100 Units/ml Inj SC SCH (22:52)
[2016-10-15] MEDS: Albuterol-Ipratrop 3 mg / 0.5 (3 ml) UD INH SCH ×6 (00:21→23:50)
[2016-10-15] MEDS: Budesonide 0.5 mg/2 ml Inhal Susp UD IH SCH ×4 (00:22→23:50)
[2016-10-15] MEDS: Piperacillin/Tazobact 3.375 GM in Sodium Chloride 0.9% 100 ML IVPB SCH ×4 (04:11→22:00)
--- NOTE | 2016-10-15 09:17 | EEG ---
DATE: 10/13/2016 This is a 16-channel electroencephalogram of awake and a drowsy adult. During the study, photic stim ulation was performed. Hyperventilation was not performed. The resting electroencephalogram consists of 30-40 microvolt alpha activity seen at parietal and occi pital leads. Anteriorly fast activity superimposed with some muscle artifact contaminating the backg round rhythm. Eye movement artifact also contaminating the background rhythm. The photic stimulatio n did not evoke driving response noted at 2-20 Hz. IMPRESSION: This is a normal electroencephalogram of awake and a drowsy adult. During the study, ne ither electroencephalographic or paroxysmal activities nor focal slowing noted. Ezra Alexander MD cc: [id number] TT: 10/14/2016 20:54:23 Confirmation # [id number] Dictation # [id number]
[2016-10-15] MEDS: Insulin Regular 100 units/ml SC SCH ×4 (09:33→23:58)
[2016-10-15] MEDS: Enoxaparin 40 mg Syringe SC SCH (09:36)
[2016-10-15] MEDS: Omega-3-Acid Ethyl Esters 1 GM Cap PO SCH (09:36)
[2016-10-15] MEDS: Pantoprazole 40 mg EC Tab PO SCH (09:37)
[2016-10-15] MEDS: Cilostazol 100 mg Tab UD PO SCH (09:37)
[2016-10-15] MEDS: Azithromycin 500 MG in Sodium Chloride 0.9% 250 ML IVPB SCH (09:38)
--- NOTE | 2016-10-15 11:45 | CP.PCM.PN ---
Subjective - Date & Time of Evaluation Date of Evaluation: 10/15/16 Time of Evaluation: 11:43 - Subjective Subjective: Pt will be having a bronchoscopy for biopsy of the lung mass on tuesday. No change in clinical status. Objective - Vital Signs/Intake and Output Vital Signs (last 24 hours): Temp Pulse Resp BP Pulse Ox 97.3 F L 87 20 116/64 98 10/15/16 08:19 10/15/16 08:19 10/15/16 08:19 10/15/16 08:19 10/15/16 08:19 - Medications Medications: Current Medications Acetylcysteine (Mucomyst 10% 30 Ml) 3 ml IH [facility] Last Admin: 10/14/16 20:15 Dose: Not Given Albuterol/Ipratropium (Duoneb 3 Mg/0.5 Mg (3 Ml) Ud) 3 ml INH RQ4 [facility] Last Admin: 10/15/16 07:38 Dose: 3 ml Aspirin (Ecotrin) 81 mg PO DAILY [facility] Last Admin: 10/15/16 09:33 Dose: 81 mg Atorvastatin Calcium (Lipitor) 20 mg PO DAILY [facility] Last Admin: 10/15/16 09:36 Dose: 20 mg Budesonide (Pulmicort Respules) 0.5 mg IH RQ8 [facility] Last Admin: 10/15/16 07:38 Dose: 0.5 mg Cilostazol (Pletal) 100 mg PO DAILY [facility] Last Admin: 10/15/16 09:37 Dose: 100 mg Colchicine (Colocrys) 0.6 mg PO DAILY [facility] Last Admin: 10/15/16 09:33 Dose: 0.6 mg Enoxaparin Sodium (Lovenox) 40 mg SC DAILY [facility] PRN Reason: Protocol Last Admin: 10/15/16 09:36 Dose: 40 mg Folic Acid (Folic Acid) 1 mg PO DAILY [facility] Last Admin: 10/15/16 09:33 Dose: 1 mg Azithromycin 500 mg/ Sodium (Chloride) 250 mls @ 250 mls/hr IVPB DAILY [facility] Last Admin: 10/15/16 09:38 Dose: 250 mls/hr Piperacillin Sod/Tazobactam (Sod 3.375 gm/ Sodium Chloride) 100 mls @ 100 mls/ hr IVPB Q6 [facility] Last Admin: 10/15/16 09:38 Dose: 100 mls/hr Insulin Detemir (Levemir) 10 units SC [facility] Last Admin: 10/14/16 22:52 Dose: 10 units Insulin Human Regular (Humulin R) 0 units SC ACCU-CHECK [facility] PRN Reason: Protocol Last Admin: 10/15/16 09:33 Dose: 3 units Zpamh-3-Imjr Ethyl Esters (Lovaza) 2 gm PO DAILY [facility] Last Admin: 10/15/16 09:36 Dose: 2 gm Pantoprazole Sodium (Protonix Ec Tab) 40 mg PO DAILY [facility] Last Admin: 10/15/16 09:37 Dose: 40 mg Pregabalin (Lyrica) 100 mg PO DAILY [facility] Last Admin: 10/14/16 08:59 Dose: 100 mg Sitagliptin Phosphate (Januvia) 25 mg PO DAILY [facility] Last Admin: 10/15/16 09:34 Dose: 25 mg Valsartan (Diovan) 80 mg PO DAILY [facility] Last Admin: 10/15/16 09:33 Dose: 80 mg - Labs Labs: 10/13/16 06:30 10/13/16 06:30 PT 10.2 SECONDS (9.6-11.2) 10/12/16 12:55 INR 0.98 (0.92-1.08) 10/12/16 12:55 APTT 24.2 SECONDS (23.3-32.5) 10/12/16 12:55
--- NOTE | 2016-10-15 17:24 | CP.PCM.PN ---
Subjective - Date & Time of Evaluation Date of Evaluation: 10/15/16 - Subjective Subjective: F/U Mass of upper lobe of L Lung. Pt c/o of cervical pain, occasional dry cough. Objective - Vital Signs/Intake and Output Vital Signs (last 24 hours): Temp Pulse Resp BP Pulse Ox 98.6 F 109 H 22 111/57 L 97 10/15/16 16:00 10/15/16 16:00 10/15/16 16:00 10/15/16 16:00 10/15/16 16:00 - Medications Medications: Current Medications Acetylcysteine (Mucomyst 10% 30 Ml) 3 ml IH RTID [facility] Last Admin: 10/14/16 20:15 Dose: Not Given Albuterol/Ipratropium (Duoneb 3 Mg/0.5 Mg (3 Ml) Ud) 3 ml INH RQ4 [facility] Last Admin: 10/15/16 16:07 Dose: 3 ml Aspirin (Ecotrin) 81 mg PO DAILY [facility] Last Admin: 10/15/16 09:33 Dose: 81 mg Atorvastatin Calcium (Lipitor) 20 mg PO DAILY [facility] Last Admin: 10/15/16 09:36 Dose: 20 mg Budesonide (Pulmicort Respules) 0.5 mg IH RQ8 [facility] Last Admin: 10/15/16 07:38 Dose: 0.5 mg Cilostazol (Pletal) 100 mg PO DAILY [facility] Last Admin: 10/15/16 09:37 Dose: 100 mg Colchicine (Colocrys) 0.6 mg PO DAILY [facility] Last Admin: 10/15/16 09:33 Dose: 0.6 mg Enoxaparin Sodium (Lovenox) 40 mg SC DAILY [facility] PRN Reason: Protocol Last Admin: 10/15/16 09:36 Dose: 40 mg Folic Acid (Folic Acid) 1 mg PO DAILY [facility] Last Admin: 10/15/16 09:33 Dose: 1 mg Azithromycin 500 mg/ Sodium (Chloride) 250 mls @ 250 mls/hr IVPB DAILY [facility] Last Admin: 10/15/16 09:38 Dose: 250 mls/hr Piperacillin Sod/Tazobactam (Sod 3.375 gm/ Sodium Chloride) 100 mls @ 100 mls/ hr IVPB Q6 [facility] Last Admin: 10/15/16 17:14 Dose: 100 mls/hr Insulin Detemir (Levemir) 10 units SC HS [facility] Last Admin: 10/14/16 22:52 Dose: 10 units Insulin Human Regular (Humulin R) 0 units SC ACCU-CHECK [facility] PRN Reason: Protocol Last Admin: 10/15/16 17:19 Dose: 4 units Vmgdx-8-Mjjl Ethyl Esters (Lovaza) 2 gm PO DAILY [facility] Last Admin: 10/15/16 09:36 Dose: 2 gm Pantoprazole Sodium (Protonix Ec Tab) 40 mg PO DAILY [facility] Last Admin: 10/15/16 09:37 Dose: 40 mg Pregabalin (Lyrica) 100 mg PO DAILY [facility] Last Admin: 10/15/16 16:36 Dose: Not Given Sitagliptin Phosphate (Januvia) 25 mg PO DAILY [facility] Last Admin: 10/15/16 09:34 Dose: 25 mg Valsartan (Diovan) 80 mg PO DAILY [facility] Last Admin: 10/15/16 09:33 Dose: 80 mg - Labs Labs: 10/13/16 06:30 10/13/16 06:30 PT 10.2 SECONDS (9.6-11.2) 10/12/16 12:55 INR 0.98 (0.92-1.08) 10/12/16 12:55 APTT 24.2 SECONDS (23.3-32.5) 10/12/16 12:55 - Constitutional Appears: No Acute Distress - Head Exam Head Exam: NORMAL INSPECTION - Eye Exam Eye Exam: PERRL - ENT Exam ENT Exam: Normal Oropharynx - Neck Exam Neck Exam: Tenderness (Minimal occipital ) - Respiratory Exam Respiratory Exam: Decreased Breath Sounds (at bases) - Cardiovascular Exam Cardiovascular Exam: REGULAR RHYTHM - GI/Abdominal Exam GI & Abdominal Exam: Soft, Normal Bowel Sounds - Extremities Exam Extremities Exam: Normal Inspection - Back Exam Back Exam: NORMAL INSPECTION - Neurological Exam Neurological Exam: Alert, Oriented x3 Additional comments: Minimal R facial droop, mild slurry speech, gait no tested, moves well extremities against gravity - Psychiatric Exam Psychiatric exam: Normal Mood - Skin Skin Exam: Normal Color, Warm Assessment and Plan (1) Mass of upper lobe of left lung Status: Acute (2) COPD exacerbation Status: Acute (3) Hyperglycemia Status: Resolved (4) HTN (hypertension) Status: Chronic (5) DMII (diabetes mellitus, type 2) Status: Chronic (6) HLD (hyperlipidemia) Status: Chronic (7) Head injury Status: Acute (8) Acute cervical sprain Status: Acute - Assessment and Plan (Free Text) Plan: Pt stated he will like that I call his Son to discuss FOB Bx. , f/u Cardiology consult
[2016-10-15] MEDS: Acetylcysteine 10% 4 ML IH SCH (20:30)
[2016-10-15] MEDS: Insulin Detemir 100 Units/ml Inj SC SCH (22:30)
[2016-10-16] MEDS: Albuterol-Ipratrop 3 mg / 0.5 (3 ml) UD INH SCH ×5 (04:45→19:18)
[2016-10-16] MEDS: Piperacillin/Tazobact 3.375 GM in Sodium Chloride 0.9% 100 ML IVPB SCH ×4 (04:49→21:23)
[2016-10-16] MEDS: Insulin Regular 100 units/ml SC SCH ×4 (06:24→22:54)
[2016-10-16] MEDS: Budesonide 0.5 mg/2 ml Inhal Susp UD IH SCH ×2 (07:57→15:21)
[2016-10-16] MEDS: Acetylcysteine 10% 4 ML IH SCH ×3 (07:57→19:17)
[2016-10-16] MEDS: Enoxaparin 40 mg Syringe SC SCH (09:05)
[2016-10-16] MEDS: Pantoprazole 40 mg EC Tab PO SCH (09:06)
[2016-10-16] MEDS: Cilostazol 100 mg Tab UD PO SCH (09:06)
[2016-10-16] MEDS: Omega-3-Acid Ethyl Esters 1 GM Cap PO SCH (09:06)
[2016-10-16] MEDS: Azithromycin 500 MG in Sodium Chloride 0.9% 250 ML IVPB SCH (09:14)
--- NOTE | 2016-10-16 12:37 | CP.PCM.CON ---
History of Present Illness - History of Present Illness History of Present Illness: Full Note Dictated. 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 DM(II)/HTN No prior H/O DC or CHF Stable from cardiac point of view for biopsy procedure Needs to come off ASA Past Patient History - Infectious Disease Hx of Infectious Diseases: None - Past Medical History & Family History Past Medical History?: Yes - Past Social History Smoking Status: Former Smoker Alcohol: None Drugs: Denies Home Situation {Lives}: Alone - CARDIAC Hx Cardiac Disorders: Yes (HTN,HLD) - PULMONARY Hx Respiratory Disorders: No - NEUROLOGICAL Hx Neurological Disorder: Yes (CVA) - HEENT Hx HEENT Problems: No - RENAL Hx Chronic Kidney Disease: No - ENDOCRINE/METABOLIC Hx Endocrine Disorders: Yes (DM1) - HEMATOLOGICAL/ONCOLOGICAL Hx Blood Disorders: No - INTEGUMENTARY Hx Dermatological Problems: No - MUSCULOSKELETAL/RHEUMATOLOGICAL Hx Musculoskeletal Disorders: Yes (GOUT) - GASTROINTESTINAL Hx Gastrointestinal Disorders: Yes Hx Gastroesophageal Reflux: Yes - GENITOURINARY/GYNECOLOGICAL Hx Genitourinary Disorders: Yes (OVERACTIVE BLADDER) - PSYCHIATRIC Hx Psychophysiologic Disorder: No - SURGICAL HISTORY Hx Surgeries: Yes Other/Comment: per son,Patient had Prostate Sx 7 yrs ago,neck sx. - ANESTHESIA Hx Anesthesia: Yes Hx Anesthesia Reactions: No Meds Allergies/Adverse Reactions: Allergies Allergy/AdvReac Type Severity Reaction Status Date / Time No Known Allergies Allergy Verified 10/12/16 13:15 - Medications Medications: Current Medications Acetylcysteine (Mucomyst 10% 4ml) 3 ml IH RTID [facility] Last Admin: 10/16/16 07:57 Dose: 3 ml Albuterol/Ipratropium (Duoneb 3 Mg/0.5 Mg (3 Ml) Ud) 3 ml INH RQ4 [facility] Last Admin: 10/16/16 11:17 Dose: 3 ml Aspirin (Ecotrin) 81 mg PO DAILY [facility] Last Admin: 10/16/16 09:06 Dose: 81 mg Atorvastatin Calcium (Lipitor) 20 mg PO DAILY [facility] Last Admin: 10/16/16 09:06 Dose: 20 mg Budesonide (Pulmicort Respules) 0.5 mg IH RQ8 [facility] Last Admin: 10/16/16 07:57 Dose: 0.5 mg Cilostazol (Pletal) 100 mg PO DAILY [facility] Last Admin: 10/16/16 09:06 Dose: 100 mg Colchicine (Colocrys) 0.6 mg PO DAILY [facility] Last Admin: 10/16/16 09:10 Dose: 0.6 mg Folic Acid (Folic Acid) 1 mg PO DAILY [facility] Last Admin: 10/16/16 09:05 Dose: 1 mg Azithromycin 500 mg/ Sodium (Chloride) 250 mls @ 250 mls/hr IVPB DAILY [facility] Last Admin: 10/16/16 09:14 Dose: 250 mls/hr Piperacillin Sod/Tazobactam (Sod 3.375 gm/ Sodium Chloride) 100 mls @ 100 mls/ hr IVPB Q6 [facility] Last Admin: 10/16/16 09:16 Dose: 100 mls/hr Insulin Detemir (Levemir) 10 units SC HS [facility] Last Admin: 10/15/16 22:30 Dose: 10 units Insulin Human Regular (Humulin R) 0 units SC ACCU-CHECK [facility] PRN Reason: Protocol Last Admin: 10/16/16 11:43 Dose: 3 units Ywdxs-2-Lppa Ethyl Esters (Lovaza) 2 gm PO DAILY [facility] Last Admin: 10/16/16 09:06 Dose: 2 gm Pantoprazole Sodium (Protonix Ec Tab) 40 mg PO DAILY [facility] Last Admin: 10/16/16 09:06 Dose: 40 mg Pregabalin (Lyrica) 100 mg PO DAILY [facility] Last Admin: 10/16/16 09:12 Dose: 100 mg Sitagliptin Phosphate (Januvia) 25 mg PO DAILY [facility] Last Admin: 10/16/16 09:06 Dose: 25 mg Valsartan (Diovan) 80 mg PO DAILY [facility] Last Admin: 10/16/16 09:06 Dose: 80 mg Results - Vital Signs Recent Vital Signs: Last Vital Signs Temp 97.7 F 10/16/16 12:31 Pulse 117 H 10/16/16 12:31 Resp 18 10/16/16 12:31 BP 99/58 L 10/16/16 12:31 Pulse Ox 98 10/16/16 12:31 - Labs Result Diagrams: 10/13/16 06:30 10/13/16 06:30 Labs: Laboratory Results - last 24 hr 10/13/16 10/13/16 12:00 13:52 Urine Legionella Ag Not detected Mycoplasma pneumon IgG 2.57 H Mycoplasma pneumon IgM 12
--- NOTE | 2016-10-16 14:43 | CON ---
DATE: 10/16/2016 He is hospitalized under Dr. Dior's care in room 413. HISTORY OF PRESENT ILLNESS: This 76-year-old man, hypertensive with dyslipidemia and diabetes mellit , came into the hospital after having sustained a fall and complaining of dizziness. He has suffer ed a cerebrovascular accident approximately 6 months back. He denies prior history of smoking. Lionel es any episode of chest pain and denies symptoms of congestive cardiac failure. His speech is signif icantly affected by his left hemiplegia. The patient though understands questions and answers approp riately. A mass was detected in the apex of his left lung and hence this consultation was requested to evaluate him for possible biopsy procedure. PHYSICAL EXAMINATION: GENERAL: Shows an elderly man who is able to lie virtually flat in bed, breathes comfortably at 16-1 8 breaths per minute, has a heart rate of 70 beats per minute, regular and a blood pressure of 134/7 4 mmHg. NECK: His jugular venous pressure was not elevated. EXTREMITIES: There was no edema over his lower extremity. The pedal pulses were not palpable. Popl iteals were feebly felt. There were no carotid bruits. HEART: The apex was not palpable. The first and second heart sounds were normal. There was no murm ur or gallop. LUNGS: There were no rales. ABDOMEN: Soft. His liver and spleen were not palpable. His electrocardiogram showed sinus rhythm with a right bundle branch block and a left anterior hemibl ock. 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 The overall left ventricular systolic function appeared pr eserved. LABORATORY DATA: Noted. His hemoglobin and hematocrit were 11.0 g and 33.2%, respectively. His WBC count and platelet counts were normal. His BUN and creatinine were 19 and 1.1 mg% with electrolytes being normal. The patient was moderately hyperglycemic over last 3 days. His liver profile appeare d normal. His TSH was normal. IMPRESSION: At this time is diabetes mellitus with hypertension, dyslipidemia and a history of gout in a patient who has suffered a cerebrovascular accident and has evidence of peripheral arterial dise ase. There is evidence of possible old myocardial infarction, though the patient displays good left ventricular systolic function and hemodynamically stable. He appears stable to proceed with the plan akila biopsy procedure. Aspirin needs to be withdrawn prior to the biopsy. Charles Hernandez MD cc: 23 TT: 10/16/2016 14:42:27 Confirmation # [id number] Dictation # [id number] tn
--- NOTE | 2016-10-16 15:52 | CP.PCM.PN ---
Subjective - Date & Time of Evaluation Date of Evaluation: 10/16/16 - Subjective Subjective: F/U Mass upper lobe left lung. Pt with cough on and off, no SOB, no chest congestion Objective - Vital Signs/Intake and Output Vital Signs (last 24 hours): Temp Pulse Resp BP Pulse Ox 97.3 F L 89 20 119/66 100 10/16/16 15:51 10/16/16 15:51 10/16/16 15:51 10/16/16 15:51 10/16/16 15:51 - Medications Medications: Current Medications Acetylcysteine (Mucomyst 10% 4ml) 3 ml IH RTID [facility] Last Admin: 10/16/16 15:21 Dose: 3 ml Albuterol/Ipratropium (Duoneb 3 Mg/0.5 Mg (3 Ml) Ud) 3 ml INH RQ4 [facility] Last Admin: 10/16/16 15:22 Dose: 3 ml Atorvastatin Calcium (Lipitor) 20 mg PO DAILY [facility] Last Admin: 10/16/16 09:06 Dose: 20 mg Budesonide (Pulmicort Respules) 0.5 mg IH RQ8 [facility] Last Admin: 10/16/16 15:21 Dose: 0.5 mg Cilostazol (Pletal) 100 mg PO DAILY [facility] Last Admin: 10/16/16 09:06 Dose: 100 mg Colchicine (Colocrys) 0.6 mg PO DAILY [facility] Last Admin: 10/16/16 09:10 Dose: 0.6 mg Folic Acid (Folic Acid) 1 mg PO DAILY [facility] Last Admin: 10/16/16 09:05 Dose: 1 mg Azithromycin 500 mg/ Sodium (Chloride) 250 mls @ 250 mls/hr IVPB DAILY [facility] Last Admin: 10/16/16 09:14 Dose: 250 mls/hr Piperacillin Sod/Tazobactam (Sod 3.375 gm/ Sodium Chloride) 100 mls @ 100 mls/ hr IVPB Q6 [facility] Last Admin: 10/16/16 09:16 Dose: 100 mls/hr Insulin Detemir (Levemir) 10 units SC HS [facility] Last Admin: 10/15/16 22:30 Dose: 10 units Insulin Human Regular (Humulin R) 0 units SC ACCU-CHECK [facility] PRN Reason: Protocol Last Admin: 10/16/16 11:43 Dose: 3 units Mvbpa-1-Ikki Ethyl Esters (Lovaza) 2 gm PO DAILY [facility] Last Admin: 10/16/16 09:06 Dose: 2 gm Pantoprazole Sodium (Protonix Ec Tab) 40 mg PO DAILY [facility] Last Admin: 10/16/16 09:06 Dose: 40 mg Pregabalin (Lyrica) 100 mg PO DAILY [facility] Last Admin: 10/16/16 09:12 Dose: 100 mg Sitagliptin Phosphate (Januvia) 25 mg PO DAILY [facility] Last Admin: 10/16/16 09:06 Dose: 25 mg Valsartan (Diovan) 80 mg PO DAILY [facility] Last Admin: 10/16/16 09:06 Dose: 80 mg - Labs Labs: 10/13/16 06:30 10/13/16 06:30 PT 10.2 SECONDS (9.6-11.2) 10/12/16 12:55 INR 0.98 (0.92-1.08) 10/12/16 12:55 APTT 24.2 SECONDS (23.3-32.5) 10/12/16 12:55 - Constitutional Appears: No Acute Distress - Head Exam Additional comments: Mild tenderness occipital. - Eye Exam Eye Exam: PERRL - ENT Exam ENT Exam: Normal Oropharynx - Neck Exam Neck Exam: Tenderness - Respiratory Exam Respiratory Exam: Decreased Breath Sounds (at bases), Rhonchi (at bases) - Cardiovascular Exam Cardiovascular Exam: REGULAR RHYTHM - GI/Abdominal Exam GI & Abdominal Exam: Soft, Normal Bowel Sounds - Extremities Exam Extremities Exam: Normal Inspection - Back Exam Back Exam: NORMAL INSPECTION - Neurological Exam Neurological Exam: Alert, Oriented x3 Additional comments: Minimal R facial droop, speech more clear , gait no tested, moves well extremities against gravity - Psychiatric Exam Psychiatric exam: Normal Mood - Skin Skin Exam: Normal Color, Warm Assessment and Plan (1) Mass of upper lobe of left lung Status: Acute (2) COPD exacerbation Status: Acute (3) Hyperglycemia Status: Resolved (4) HTN (hypertension) Status: Chronic (5) DMII (diabetes mellitus, type 2) Status: Chronic (6) HLD (hyperlipidemia) Status: Chronic (7) Head injury Status: Acute (8) Acute cervical sprain Status: Acute - Assessment and Plan (Free Text) Plan: Continue Zosyn, Januvia, Levemir and rest of Tx. Hold ASA , FOB can be done elective procedure, attempt to contact family unsuccessfully, wait for SS consult.
[2016-10-16] MEDS: Insulin Detemir 100 Units/ml Inj SC SCH (21:25)
[2016-10-17] MEDS: Albuterol-Ipratrop 3 mg / 0.5 (3 ml) UD INH SCH ×7 (00:45→23:15)
[2016-10-17] MEDS: Budesonide 0.5 mg/2 ml Inhal Susp UD IH SCH ×4 (00:46→23:15)
[2016-10-17] MEDS: Piperacillin/Tazobact 3.375 GM in Sodium Chloride 0.9% 100 ML IVPB SCH ×4 (03:25→21:50)
[2016-10-17] MEDS: Insulin Regular 100 units/ml SC SCH ×4 (07:05→22:18)
[2016-10-17] MEDS: Acetylcysteine 10% 4 ML IH SCH ×3 (08:16→19:44)
[2016-10-17] MEDS: Pantoprazole 40 mg EC Tab PO SCH (08:25)
[2016-10-17] MEDS: Cilostazol 100 mg Tab UD PO SCH (08:25)
[2016-10-17] MEDS: Omega-3-Acid Ethyl Esters 1 GM Cap PO SCH (08:25)
[2016-10-17] MEDS: Azithromycin 500 MG in Sodium Chloride 0.9% 250 ML IVPB SCH (08:31)
[2016-10-17] MEDS ORDERED: Promethazine/Cod 6.25mg-10mg/5ml Syr UD PO PRN (10:23)
[2016-10-17] MEDS ORDERED: Ergocalciferol 50,000 Intl Units Cap PO SCH (10:30)
--- NOTE | 2016-10-17 13:34 | CP.PCM.PN ---
Objective - Vital Signs/Intake and Output Vital Signs (last 24 hours): Temp Pulse Resp BP Pulse Ox 97.9 F 91 H 20 129/79 100 10/17/16 12:00 10/17/16 12:00 10/17/16 12:00 10/17/16 12:00 10/17/16 12:00 - Medications Medications: Current Medications Acetylcysteine (Mucomyst 10% 4ml) 3 ml IH RTID [facility] Last Admin: 10/17/16 11:48 Dose: 3 ml Albuterol/Ipratropium (Duoneb 3 Mg/0.5 Mg (3 Ml) Ud) 3 ml INH RQ4 [facility] Last Admin: 10/17/16 11:48 Dose: 3 ml Atorvastatin Calcium (Lipitor) 20 mg PO DAILY [facility] Last Admin: 10/17/16 08:26 Dose: 20 mg Budesonide (Pulmicort Respules) 0.5 mg IH RQ8 [facility] Last Admin: 10/17/16 08:16 Dose: 0.5 mg Cilostazol (Pletal) 100 mg PO DAILY [facility] Last Admin: 10/17/16 08:25 Dose: 100 mg Colchicine (Colocrys) 0.6 mg PO DAILY [facility] Last Admin: 10/17/16 08:26 Dose: 0.6 mg Ergocalciferol (Drisdol 50,000 Intl Units Cap) 1 cap PO Q7D [facility] Last Admin: 10/17/16 13:30 Dose: 1 cap Folic Acid (Folic Acid) 1 mg PO DAILY [facility] Last Admin: 10/17/16 08:25 Dose: 1 mg Azithromycin 500 mg/ Sodium (Chloride) 250 mls @ 250 mls/hr IVPB DAILY [facility] Last Admin: 10/17/16 08:31 Dose: 250 mls/hr Piperacillin Sod/Tazobactam (Sod 3.375 gm/ Sodium Chloride) 100 mls @ 100 mls/ hr IVPB Q6 [facility] Last Admin: 10/17/16 10:11 Dose: 100 mls/hr Insulin Detemir (Levemir) 14 units SC [facility] Insulin Human Regular (Humulin R) 0 units SC ACCU-CHECK [facility] PRN Reason: Protocol Last Admin: 10/17/16 11:40 Dose: 4 units Tvyml-9-Jbak Ethyl Esters (Lovaza) 2 gm PO DAILY [facility] Last Admin: 10/17/16 08:25 Dose: 2 gm Pantoprazole Sodium (Protonix Ec Tab) 40 mg PO DAILY [facility] Last Admin: 10/17/16 08:25 Dose: 40 mg Promethazine HCl/Codeine (Phenergan/Codeine Oral Syrup) 10 ml PO Q6 [facility] PRN Reason: Cough Sitagliptin Phosphate (Januvia) 50 mg PO DAILY [facility] Valsartan (Diovan) 80 mg PO DAILY [facility] Last Admin: 10/17/16 08:26 Dose: 80 mg - Labs Labs: 10/13/16 06:30 10/13/16 06:30 PT 10.2 SECONDS (9.6-11.2) 10/12/16 12:55 INR 0.98 (0.92-1.08) 10/12/16 12:55 APTT 24.2 SECONDS (23.3-32.5) 10/12/16 12:55 Assessment and Plan (1) Mass of upper lobe of left lung Status: Acute (2) COPD exacerbation Status: Acute (3) Hyperglycemia Status: Acute (4) HTN (hypertension) Status: Chronic (5) DMII (diabetes mellitus, type 2) Status: Chronic (6) HLD (hyperlipidemia) Status: Chronic (7) Head injury Status: Acute (8) Acute cervical sprain Status: Acute
--- NOTE | 2016-10-17 13:57 | CP.PCM.PN ---
Subjective - Date & Time of Evaluation Date of Evaluation: 10/17/16 - Subjective Subjective: No cough , no SOB , no Cervical pain Objective - Vital Signs/Intake and Output Vital Signs (last 24 hours): Temp Pulse Resp BP Pulse Ox 97.9 F 91 H 20 129/79 100 10/17/16 12:00 10/17/16 12:00 10/17/16 12:00 10/17/16 12:00 10/17/16 12:00 - Medications Medications: Current Medications Acetylcysteine (Mucomyst 10% 4ml) 3 ml IH RTID [facility] Last Admin: 10/17/16 11:48 Dose: 3 ml Albuterol/Ipratropium (Duoneb 3 Mg/0.5 Mg (3 Ml) Ud) 3 ml INH RQ4 [facility] Last Admin: 10/17/16 11:48 Dose: 3 ml Atorvastatin Calcium (Lipitor) 20 mg PO DAILY [facility] Last Admin: 10/17/16 08:26 Dose: 20 mg Budesonide (Pulmicort Respules) 0.5 mg IH RQ8 [facility] Last Admin: 10/17/16 08:16 Dose: 0.5 mg Cilostazol (Pletal) 100 mg PO DAILY [facility] Last Admin: 10/17/16 08:25 Dose: 100 mg Colchicine (Colocrys) 0.6 mg PO DAILY [facility] Last Admin: 10/17/16 08:26 Dose: 0.6 mg Ergocalciferol (Drisdol 50,000 Intl Units Cap) 1 cap PO Q7D [facility] Last Admin: 10/17/16 13:30 Dose: 1 cap Folic Acid (Folic Acid) 1 mg PO DAILY [facility] Last Admin: 10/17/16 08:25 Dose: 1 mg Azithromycin 500 mg/ Sodium (Chloride) 250 mls @ 250 mls/hr IVPB DAILY [facility] Last Admin: 10/17/16 08:31 Dose: 250 mls/hr Piperacillin Sod/Tazobactam (Sod 3.375 gm/ Sodium Chloride) 100 mls @ 100 mls/ hr IVPB Q6 [facility] Last Admin: 10/17/16 10:11 Dose: 100 mls/hr Insulin Detemir (Levemir) 14 units SC HS [facility] Insulin Human Regular (Humulin R) 0 units SC ACCU-CHECK [facility] PRN Reason: Protocol Last Admin: 10/17/16 11:40 Dose: 4 units Uivmm-4-Dtsa Ethyl Esters (Lovaza) 2 gm PO DAILY [facility] Last Admin: 10/17/16 08:25 Dose: 2 gm Pantoprazole Sodium (Protonix Ec Tab) 40 mg PO DAILY [facility] Last Admin: 10/17/16 08:25 Dose: 40 mg Pregabalin (Lyrica) 100 mg PO DAILY [facility] Promethazine HCl/Codeine (Phenergan/Codeine Oral Syrup) 10 ml PO Q6 PRN PRN Reason: Cough Sitagliptin Phosphate (Januvia) 50 mg PO DAILY [facility] Valsartan (Diovan) 80 mg PO DAILY [facility] Last Admin: 10/17/16 08:26 Dose: 80 mg - Labs Labs: 10/13/16 06:30 10/13/16 06:30 PT 10.2 SECONDS (9.6-11.2) 10/12/16 12:55 INR 0.98 (0.92-1.08) 10/12/16 12:55 APTT 24.2 SECONDS (23.3-32.5) 10/12/16 12:55 - Constitutional Appears: No Acute Distress - Head Exam Head Exam: NORMAL INSPECTION - Eye Exam Eye Exam: PERRL - ENT Exam ENT Exam: Normal Oropharynx - Neck Exam Neck Exam: Tenderness (mild C spine) - Respiratory Exam Respiratory Exam: Decreased Breath Sounds (at bases) - Cardiovascular Exam Cardiovascular Exam: REGULAR RHYTHM - GI/Abdominal Exam GI & Abdominal Exam: Soft, Normal Bowel Sounds - Extremities Exam Extremities Exam: Normal Inspection - Back Exam Back Exam: NORMAL INSPECTION - Neurological Exam Neurological Exam: Alert, Oriented x3 Additional comments: minimal R facial drop , speech more clear , move well extremities against gravity - Psychiatric Exam Psychiatric exam: Anxious - Skin Skin Exam: Warm Assessment and Plan (1) Mass of upper lobe of left lung Status: Acute (2) COPD exacerbation Assessment & Plan: Spiculated mass increased from previous CT Chest , r/o malignant neoplasm Status: Acute (3) HTN (hypertension) Status: Chronic (4) DMII (diabetes mellitus, type 2) Status: Chronic (5) HLD (hyperlipidemia) Status: Chronic (6) Head injury Assessment & Plan: improved Status: Acute (7) Acute cervical sprain Assessment & Plan: improved Status: Acute - Assessment and Plan (Free Text) Assessment: Improved Plan: Discussed with Patient's son , nobody at home, Social Service to arrange roof cement and paint maker helper at home upon discharge tomorrow, Patient can have elective procedure for Bx procedure of ESTEVAN mass as out patient. F/U PMD.
[2016-10-17] MEDS: Insulin Detemir 100 Units/ml Inj SC SCH (21:52)
[2016-10-18] MEDS: Albuterol-Ipratrop 3 mg / 0.5 (3 ml) UD INH SCH ×4 (04:17→21:17)
[2016-10-18 06:55] LABS: HEMATOCRIT 33.3 % (35.0-51.0); MEAN CELL VOLUME 81.2 fl (80.0-94.0); MEAN CORPUSCULAR HEMOGLOBIN 26.6 pg (27.0-31.0); MEAN CORPUSCULAR HGB CONC 32.8 g/dL (33.0-37.0); RED CELL DISTRIBUTION WIDTH 15.8 % (11.5-14.5); WHITE BLOOD COUNT 10.5 K/uL (4.8-10.8)
[2016-10-18 07:09] LABS: ALB/GLOB RATIO 0.9 (1.0-2.1); ALKALINE PHOSPHATASE 90 U/L (38-126); ALT/SGPT 25 U/L (21-72); AST/SGOT 31 U/L (17-59); BILIRUBIN,TOTAL 0.4 mg/dl (0.2-1.3); BLOOD UREA NITROGEN 23 mg/dl (9-20); CALCIUM 9.8 mg/dL (8.4-10.2); CARBON DIOXIDE 29 mmol/L (22-30); CHLORIDE 100 mmol/L (98-107); GFR AFRICAN-AMERICAN > 60; GLUCOSE,RANDOM 134 mg/dL (75-110); POTASSIUM 4.4 MMOL/L (3.6-5.0); SODIUM 144 mmol/l (132-148); TOTAL PROTEIN 8.7 G/DL (6.3-8.2)
[2016-10-18] MEDS: Acetylcysteine 10% 4 ML IH SCH ×2 (07:55→21:18)
[2016-10-18] MEDS: Budesonide 0.5 mg/2 ml Inhal Susp UD IH SCH ×2 (07:58→21:19)
[2016-10-18] MEDS: Cilostazol 100 mg Tab UD PO SCH (09:45)
[2016-10-18] MEDS: Pantoprazole 40 mg EC Tab PO SCH (09:45)
[2016-10-18] MEDS: Omega-3-Acid Ethyl Esters 1 GM Cap PO SCH (09:46)
[2016-10-18] MEDS: Piperacillin/Tazobact 3.375 GM in Sodium Chloride 0.9% 100 ML IVPB SCH ×3 (09:52→23:00)
[2016-10-18] MEDS: Azithromycin 500 MG in Sodium Chloride 0.9% 250 ML IVPB SCH (09:52)
[2016-10-18] MEDS: Insulin Regular 100 units/ml SC SCH ×4 (09:53→23:11)
[2016-10-18] MEDS: Insulin Detemir 100 Units/ml Inj SC SCH (23:13)
[2016-10-19] MEDS: Budesonide 0.5 mg/2 ml Inhal Susp UD IH SCH ×2 (00:59→08:41)
[2016-10-19] MEDS: Albuterol-Ipratrop 3 mg / 0.5 (3 ml) UD INH SCH ×3 (00:59→08:41)
[2016-10-19 05:05] VITALS: O2SAT 97
[2016-10-19 08:19] VITALS: BP 158/88; PULSE 96; RESP 20; TEMP 97.1
[2016-10-19] MEDS: Acetylcysteine 10% 4 ML IH SCH (08:41)
[2016-10-19] MEDS: Pantoprazole 40 mg EC Tab PO SCH (09:34)
[2016-10-19] MEDS: Cilostazol 100 mg Tab UD PO SCH (09:35)
[2016-10-19] MEDS: Omega-3-Acid Ethyl Esters 1 GM Cap PO SCH (09:36)
--- NOTE | 2016-10-21 07:17 | PQF GENQUE ---
Dr. Dior consult dated 10/16 documents "old cva with left hemiplegia." Consult dated 10/13 documents "mild right hemiparesis." After study did the pt have a diagnosis of hemiparesis? If so which side? This form is a permanent part of the medical record Clarification of your documentation is requested to better reflect the severity of illness and intensity of treatment of your patient. Indicators present [] Specify: [] [] Specify: [] [] Specify: [] [] Specify: [] Location in the medical record that reflects the above clinical findings: [x] consult, 10/16 consult Treatment Provided: [] PHYSICIAN'S RESPONSE Based on your medical judgment of the clinical indicators outlined above please clarify the following: [] Practitioner response [] If unable to determine, please check the box, sign and date. Present On Admission (POA) Indicator: [] Present at the time of admission [] Not present at the time of admission [] Clinically Undetermined In responding to this query, please exercise your independent professional judgment. The fact that a question is asked does not imply that any particular answer is desired or expected. Thank you for your clarification on this documentation. If you have any questions please call:[ ] * Thank you, [ ]Jelena Egan eating disorder psychologist NATHANAEL
== END 2016-10-19 11:00 | disposition home or self-care (01) | DRG 191 ==
LOC: H.ER 12:26 → H.ERHOLD 15:39 → OBSVTOIN 15:39 → H.TEL 19:02
PROVIDERS: ADMIT Internal Medicine Pulmonary Disease; ATTEND Internal Medicine Pulmonary Disease
DX: J44.1 Chronic obstructive pulmonary disease with (acute) exacerbation (principal); I69.354 Hemiplegia and hemiparesis following cerebral infarction affecting left non-dominant side; E11.65 Type 2 diabetes mellitus with hyperglycemia; S06.0X0A Concussion without loss of consciousness, initial encounter; I10 Essential (primary) hypertension; S13.4XXA Sprain of ligaments of cervical spine, initial encounter; W19.XXXA Unspecified fall, initial encounter; Y93.9 Activity, unspecified; Y92.009 Unspecified place in unspecified non-institutional (private) residence as the place of occurrence of the external cause; I73.9 Peripheral vascular disease, unspecified; M10.9 Gout, unspecified; E78.5 Hyperlipidemia, unspecified; R91.8 Other nonspecific abnormal finding of lung field; I25.10 Atherosclerotic heart disease of native coronary artery without angina pectoris; Z95.1 Presence of aortocoronary bypass graft; Z79.4 Long term (current) use of insulin; N32.81 Overactive bladder